=== PATIENT | male | born 1955 ===

== ENCOUNTER → 2020-10-22 | Outpatient (CLI) | payer MEDICARE, OTHER | END | disposition home or self-care (01) | LOC: RAD 14:06 | PROVIDERS: ATTEND Physician Assistant Surgical | DX: M47.23 Other spondylosis with radiculopathy, cervicothoracic region (principal); M50.10 Cervical disc disorder with radiculopathy, unspecified cervical region; M25.78 Osteophyte, vertebrae; M48.02 Spinal stenosis, cervical region | CPT/HCPCS: 72141 ==